=== PATIENT | female | born 1955 | race Caucasian/White ===

== ENCOUNTER 2016-08-21 14:31 | Emergency (ER) | payer BC, OTHER ==
--- NOTE | 2016-08-21 14:47 | ED.PDOC ---
History of Present Illness - General Chief Complaint: General Stated Complaint: Near syncopal episode Time Seen by Provider: 08/21/16 14:47 Source: patient, EMS notes reviewed, family Exam Limitations: no limitations - History of Present Illness Initial Comments: Yolie Dias 61 y/o female stated that after having bowel movement she got lightheaded and was noted to be holding to the bathroom door got wobbly and was in cold sweat her shirt was wet and was helped to get seated on her sofa.Blood sugar taken-63 mg/dl;her bp was 75/55 and was repeated after a minute noted 175/140 this was taken by digital bp machine.Denies chest pain, headache nausea/vomiting dysarthria,blurry vision.She stated she was constipated but able to have bm.Has history of DM2,HTN,Thyroid diseaseVS on her arrival bp-108/44;sao2-95;hr-68.Stated from [place] visiting relatives here in [place] Timing/Duration: 1/2 hour Severity: moderate Improving Factors: nothing Worsening Factors: nothing Associated Symptoms: syncope - near syncope Allergies/Adverse Reactions: Allergies NO KNOWN ALLERGY Allergy (Verified 08/21/16 14:53) Home Medications: Ambulatory Orders Atorvastatin Calcium [Lipitor] 20 mg PO DAILY 08/21/16 Baclofen 10 mg PO BID 08/21/16 DULoxetine HCL [Cymbalta] 30 mg PO DAILY 08/21/16 Furosemide 20 mg PO DAILY 08/21/16 Gabapentin 800 mg PO TID 08/21/16 HYDROcodone 5MG/APAP 325MG [[place] 5/325] 1 ea PO Q6H 08/21/16 Insulin Glargine [Lantus Solostar] 60 unit SC BEDTIME 08/21/16 Insulin Glulisine [Apidra Solostar] 12 unit SC AC 08/21/16 Levothyroxine Sodium 175 mcg PO DAILY 08/21/16 Zolpidem Tartrate [Zolpidem Tartrate ER] 12.5 mg PO BEDTIME PRN 08/21/16 Review of Systems - Review of Systems Constitutional: States: no symptoms reported EENTM: States: no symptoms reported Respiratory: States: no symptoms reported Cardiology: States: no symptoms reported Gastrointestinal/Abdominal: States: constipation - chronic Genitourinary: States: no symptoms reported Musculoskeletal: States: no symptoms reported Skin: States: no symptoms reported Neurological: States: see HPI, other Endocrine: States: no symptoms reported Hematologic/Lymphatic: States: no symptoms reported Past Medical History (General) - Patient Medical History Hx Hypertension: Yes Hx Thyroid Disease: Yes Hx Diabetes: Yes Surgical History: other - hysterectomy - Social History Hx Tobacco Use: No Hx Alcohol Use: No Hx Substance Use: No Hx Substance Use Treatment: No Hx Depression: No Feels Threatened In Home Enviroment: No Feels Threatened In a Relationship: No Hx Physical Abuse: No Hx Emotional Abuse: No Hx Suspected Abuse: No - Activities of Daily Living Patient Lives Alone: No - Family Medical History - Family History Father Hx Family Stroke: Yes - brother Hx Family;Other: DAD-parkinsons disease; Mother Family History: Unknown Physical Exam - Physical Exam General Appearance: Alert, Comfortable, No apparent distress, Other - speech fluent Eye Exam: bilateral normal Ears, Nose, Throat: hearing grossly normal, normal ENT inspection, normal pharynx Neck: non-tender, full range of motion, supple Respiratory: chest non-tender, lungs clear, normal breath sounds, no respiratory distress Cardiovascular/Chest: normal peripheral pulses, regular rate, rhythm, no edema, no murmur Peripheral Pulses: radial,right: 1+, radial,left: 1+ Gastrointestinal/Abdominal: normal bowel sounds, non tender, soft, no organomegaly Back Exam: normal inspection, no CVA tenderness, no vertebral tenderness Extremity: normal range of motion, non-tender, normal inspection, no calf tenderness Neurologic: no motor/sensory deficits, alert, normal mood/affect, oriented x 3 Skin Exam: normal color, warm/dry Lymphatic: no adenopathy Progress - Progress Progress: 08/21/16 15:08 Vital Signs - 24 hr 08/21/16 14:44 Temperature 99.0 F Pulse Rate [ 69 Left Radial] Respiratory 16 Rate Blood Pressure 108/42 [Left Arm] O2 Sat by Pulse 96 Oximetry - Results/Orders Results/Orders: 08/21/16 14:49 URINALYSIS Stat 08/21/16 15:15 EKG STAT Laboratory Results - last 24 hr 08/21/16 08/21/16 08/21/16 15:01 15:01 15:01 WBC 9.5 RBC 4.84 Hgb 14.3 Hct 42.5 MCV 87.7 MCH 29.4 MCHC 33.5 RDW 14.6 H Plt Count 166 MPV 8.7 Absolute Neuts (auto) 6.10 Absolute Lymphs (auto) 2.30 Absolute Monos (auto) 0.70 Absolute Eos (auto) 0.30 Absolute Basos (auto) 0.10 Neutrophils % 64.4 Lymphocytes % 24.9 Monocytes % 7.0 Eosinophils % 3.0 Basophils % 0.7 PT INR PTT (SP) D-Dimer, Quantitative 4155 H* Sodium 138 Potassium 4.0 Chloride 101 Carbon Dioxide 28 Anion Gap 13.0 BUN 29 H Creatinine 1.84 H BUN/Creatinine Ratio 15.8 Random Glucose 118 H Serum Osmolality 282.6 Lactic Acid Calcium 8.9 Total Bilirubin 0.2 AST 33 ALT 37 Alkaline Phosphatase 82 Creatine Kinase 96 CK-MB (CK-2) 3.8 CK-MB (CK-2) % Not Reportable Troponin I < 0.02 B-Natriuretic Peptide Serum Total Protein 6.6 Albumin 3.4 Globulin 3.2 Albumin/Globulin Ratio 1.1 08/21/16 08/21/16 08/21/16 15:01 15:01 15:15 WBC RBC Hgb Hct MCV MCH MCHC RDW Plt Count MPV Absolute Neuts (auto) Absolute Lymphs (auto) Absolute Monos (auto) Absolute Eos (auto) Absolute Basos (auto) Neutrophils % Lymphocytes % Monocytes % Eosinophils % Basophils % PT 9.9 INR 0.870 PTT (SP) 32.9 D-Dimer, Quantitative Sodium Potassium Chloride Carbon Dioxide Anion Gap BUN Creatinine BUN/Creatinine Ratio Random Glucose Serum Osmolality Lactic Acid 1.2 Calcium Total Bilirubin AST ALT Alkaline Phosphatase Creatine Kinase CK-MB (CK-2) CK-MB (CK-2) % Troponin I B-Natriuretic Peptide 22.9 Serum Total Protein Albumin Globulin Albumin/Globulin Ratio - EKG/XRAY/CT EKG: Sinus Comments: HR-68 ,Q waves lead 111,LAD XRAY: chest - no acute disease/radiologist Departure - Departure Clinical Impression: Near syncope, Elevated d-dimer, Renal insufficiency Time of Disposition: 15:59 - D/W Dr. Monroy-RAULITO miranda [facility] Disposition: Transfer to Hospital Condition: Good Departure Forms: ED Discharge - Pt. Copy, Patient Portal Self Enrollment Home Medications: Ambulatory Orders Atorvastatin Calcium [Lipitor] 20 mg PO DAILY 08/21/16 Baclofen 10 mg PO BID 08/21/16 DULoxetine HCL [Cymbalta] 30 mg PO DAILY 08/21/16 Furosemide 20 mg PO DAILY 08/21/16 Gabapentin 800 mg PO TID 08/21/16 HYDROcodone 5MG/APAP 325MG [[place] 5/325] 1 ea PO Q6H 08/21/16 Insulin Glargine [Lantus Solostar] 60 unit SC BEDTIME 08/21/16 Insulin Glulisine [Apidra Solostar] 12 unit SC AC 08/21/16 Levothyroxine Sodium 175 mcg PO DAILY 08/21/16 Zolpidem Tartrate [Zolpidem Tartrate ER] 12.5 mg PO BEDTIME PRN 08/21/16 Transfer to Outside Facility - Transfer Information Accepting Facility: [facility] Reason for Transfer: needs nuclear lung scan
[2016-08-21 14:48] VITALS: TEMP 99
[2016-08-21] MEDS ORDERED: SODIUM CHLORIDE 0.9% 500ML 500 ML IVS ONE (14:50)
--- NOTE | 2016-08-21 15:42 | RAD ---
EXAM DESCRIPTION: Chest,1 View CLINICAL HISTORY: 61 years, Female, cough COMPARISON: None. FINDINGS: A single frontal chest radiograph was performed. The lungs are well expanded and clear. The costophrenic sulci are sharp. The cardiac silhouette, hilar regions, trachea, soft tissues and bony structures are unremarkable. IMPRESSION: No acute cardiopulmonary disease. Electronically signed by: Millicent Lakhani MD 08/21/2016 3:41 PM CDT
[2016-08-21 16:26] VITALS: BP 146/84; O2SAT 95
== END 2016-08-21 16:25 | disposition short-term general hospital (02) ==
LOC: ER 14:31
DX: R55 Syncope and collapse (principal); N28.9 Disorder of kidney and ureter, unspecified; R79.89 Other specified abnormal findings of blood chemistry; E11.9 Type 2 diabetes mellitus without complications; I10 Essential (primary) hypertension; E07.9 Disorder of thyroid, unspecified; Z79.4 Long term (current) use of insulin; Z79.899 Other long term (current) drug therapy
CPT/HCPCS: 36415; 71010; 80053; 82550; 82553; 83605; 83880; 84484; 85025; 85379; 85610; 85730; 93005; J7040